=== PATIENT | female | born 1935 | race Caucasian/White ===

== ENCOUNTER 2022-02-22 19:04 | Outpatient (CLI) | payer MEDICARE, OTHER | END 2022-02-22 23:59 | disposition short-term general hospital (02) | LOC: EMS 19:04 | DX: R55 Syncope and collapse (principal); S01.412A Laceration without foreign body of left cheek and temporomandibular area, initial encounter; W18.39XA Other fall on same level, initial encounter; Y92.000 Kitchen of unspecified non-institutional (private) residence as the place of occurrence of the external cause; R11.2 Nausea with vomiting, unspecified; R00.1 Bradycardia, unspecified | CPT/HCPCS: A0425; A0427 ==